=== PATIENT | female | born 1990 | race Caucasian/White ===

== ENCOUNTER 2017-05-08 21:12 | Emergency (ER) | payer SELFPAY ==
[2017-05-08 21:40] LABS: Basophils % (Auto) 0.5 % (0.0-1.8); Eosinophils % (Auto) 1.2 % (0.0-4.3); Mean Corpuscular HGB Conc 30 % (30-34); Platelet Count 327 K/mm3 (140-440); Red Blood Count 5.29 M/mm3 (3.65-5.03); Red Cell Distribution Width 18.8 % (13.2-15.2); White Blood Count 6.5 K/mm3 (4.5-11.0)
[2017-05-08 21:59] LABS: Bilirubin,Urine NEG (Negative); Blood,Urine NEG (Negative); Ketones,Urine TR mg/dL (Negative); Leukocyte Esterase,Urine NEG (Negative); Mucus,Urine FEW /HPF; Nitrite,Urine NEG (Negative); Protein,Urine <15 mg/dL mg/dL (Negative); Urobilinogen,Urine < 2.0 mg/dL (<2.0)
[2017-05-08 22:00] LABS: Anion Gap 20 mmol/L; BUN/Creatinine Ratio 11; Blood Urea Nitrogen 8 mg/dL (7-17); Calcium 9.1 mg/dL (8.4-10.2); Carbon Dioxide 23 mmol/L (22-30); Chloride 95.9 mmol/L (98-107); Glucose 369 mg/dL (65-100); Potassium 3.9 mmol/L (3.6-5.0); Sodium 135 mmol/L (137-145)
[2017-05-08 22:04] LABS: Hematocrit 33.5 % (30.3-42.9); Hemoglobin 10.1 gm/dl (10.1-14.3); Mean Corpuscular Hemoglobin 19 pg (28-32); Mean Corpuscular Volume 63 fl (79-97)
[2017-05-09] MEDS ORDERED: NACL 0.9% 1000 ML 1,000 ML IV ONE (03:19)
[2017-05-09 05:39] LABS: Alanine Aminotransferase 24 units/L (7-56); Albumin 3.6 g/dL (3.9-5); Albumin/Globulin Ratio 1.2 %; Alkaline Phosphatase 113 units/L (35-129); Lipase 24 units/L (13-60); Total Protein 6.5 g/dL (6.3-8.2)
[2017-05-09 05:52] LABS: Bilirubin,Direct < 0.2 mg/dL (0-0.2); Bilirubin,Indirect 0.2 mg/dL
--- NOTE | 2017-05-09 05:55 | Emergency Department Report ---
HPI - General Chief Complaint: Hyperglycemia Time Seen by Provider: 05/09/17 02:40 - HPI HPI: This is a 26-year-old female presents to the emergency department with complaint of elevated blood sugar. She also complains of some upper abdominal discomfort with some nausea and vomiting that occurred earlier. The patient says that she was diagnosed with diabetes around the time of her last , 9 months ago. She was not placed on any diabetes medications and was just given a blood sugar monitor and was attempting to control her sugar with diet. However earlier today she checked her blood sugar and it was about 400 and then she rechecked it this evening and it was almost 600. She has been having trouble with controlling her sugar over the past 3 days. Over this time she also has not had a bowel movement. She denies any fever, dysuria, vaginal discharge or bleeding. She does not have a primary care physician. No recent travel or sick contacts at home. ED Past Medical Hx - Past Medical History Hx Diabetes: Yes - Surgical History Additional Surgical History: C/S - Social History Smoking Status: Never Smoker Substance Use Type: None - Medications Home Medications: Home Medications Medication Instructions Recorded Confirmed Last Taken Type Docusate Sodium [Colace] 100 mg PO BID PRN #20 capsule 05/09/17 Unknown Rx Magnesium Citrate [Citrate of 300 ml PO NOW #1 bottle 05/09/17 Unknown Rx Magnesia] metFORMIN [Glucophage] 500 mg PO BID #60 tablet 05/09/17 Unknown Rx ED Review of Systems ROS: Stated complaint: ELEVATED BLOOD SUGAR - N/V Other details as noted in HPI Comment: All other systems reviewed and negative Constitutional: denies: chills, fever Eyes: denies: eye pain, eye discharge, vision change ENT: denies: ear pain, throat pain Respiratory: denies: cough, shortness of breath, wheezing Cardiovascular: denies: chest pain, palpitations Endocrine: increased thirst, increased urine Gastrointestinal: abdominal pain, nausea, vomiting Genitourinary: frequency. denies: dysuria, discharge Musculoskeletal: denies: back pain, joint swelling, arthralgia Skin: denies: rash, lesions Neurological: denies: headache, weakness, paresthesias Physical Exam - Physical Exam Vital Signs: Vital Signs 05/08/17 05/08/17 05/09/17 21:16 21:20 02:38 Temperature 98.0 F 98.3 F Pulse Rate 86 85 Respiratory 18 18 Rate Blood Pressure 131/79 131/79 114/61 O2 Sat by Pulse 100 100 Oximetry 05/09/17 05/09/17 05/09/17 02:40 02:45 03:00 Temperature 97.6 F Pulse Rate 69 71 Respiratory 15 17 Rate Blood Pressure 114/61 108/66 O2 Sat by Pulse 100 100 Oximetry 05/09/17 05/09/17 03:15 05:40 Temperature Pulse Rate 64 Respiratory 14 16 Rate Blood Pressure 114/61 O2 Sat by Pulse 100 97 Oximetry Physical Exam: GENERAL: The patient is well-developed well-nourished. HENT: Normocephalic. Atraumatic. Patient has moist mucous membranes. EYES: Extraocular motions are intact. Pupils equal reactive to light bilaterally. NECK: Supple. Trachea is midline. CHEST/LUNGS: Clear to auscultation. There is no respiratory distress noted. HEART/CARDIOVASCULAR: Regular. There is no tachycardia. There is no gallop rub or murmur. ABDOMEN: Abdomen is soft. There is tenderness palpation to the upper quadrants of the abdomen. No guarding or rebound tenderness. Patient has normal bowel sounds. There is no abdominal distention. SKIN: Skin is warm and dry.. NEURO: The patient is awake, alert, and oriented. The patient is cooperative. The patient has no focal neurologic deficits. The patient has normal speech. MUSCULOSKELETAL: There is no tenderness or deformity. There is no limitation range of motion. There is no evidence of acute injury. ED Course Vital Signs 05/08/17 05/08/17 05/09/17 21:16 21:20 02:38 Temperature 98.0 F 98.3 F Pulse Rate 86 85 Respiratory 18 18 Rate Blood Pressure 131/79 131/79 114/61 O2 Sat by Pulse 100 100 Oximetry 05/09/17 05/09/17 05/09/17 02:40 02:45 03:00 Temperature 97.6 F Pulse Rate 69 71 Respiratory 15 17 Rate Blood Pressure 114/61 108/66 O2 Sat by Pulse 100 100 Oximetry 05/09/17 05/09/17 03:15 05:40 Temperature Pulse Rate 64 Respiratory 14 16 Rate Blood Pressure 114/61 O2 Sat by Pulse 100 97 Oximetry ED Medical Decision Making - Lab Data Result diagrams: 05/08/17 21:30 05/08/17 21:30 - Radiology Data Radiology results: report reviewed, image reviewed interpreted by me: X-ray of the abdomen shows nonspecific nonobstructive bowel gas. PROCEDURE: US ABDOMEN LIMITED TECHNIQUE: Real-time sonography in multiple planes of the gallbladder fossa and CBD with imaging of the adjacent liver, pancreas, and right kidney was performed with image documentation. CPT 79978 HISTORY: Upper abd pain COMPARISON: No prior studies are available for comparison. FINDINGS: Liver: Liver is fatty. There is no discrete mass.. Gallbladder: There is sludge in the gallbladder. There are no stones. There is no wall thickening or pericholecystic fluid. Intrahepatic bile ducts: Normal . Extrahepatic bile ducts: Bile ducts are normal in caliber.. Pancreas: Normal as visualized with suboptimal depiction of the pancreatic tail. Right kidney: Normal echotexture. No focal renal mass, calculus, or hydronephrosis. Other: No free fluid. IMPRESSION: Fatty liver. There is no cholelithiasis. There is gallbladder sludge. There is no biliary ductal dilatation. Transcribed By: CO Dictated By: RYANNE LINDO MD Electronically Authenticated By: RYANNE LINDO MD Signed Date/Time: 05/09/17 0334 - Medical Decision Making This patient presented with hyperglycemia but does not appear to be in diabetic ketoacidosis as there is no venous acidosis or significant elevated anion gap. Her blood sugar came down to about 280 without any insulin given. She was given a liter of IV fluid. Her abdominal pain was checked out with an x-ray and ultrasound that did not show any acute processes. Labs otherwise regarding the abdomen were unremarkable including normal bilirubin, lipase and LFTs. We discussed dietary and lifestyle changes to make and the patient will be started on metformin. She already checks her blood sugar multiple times per day and will continue to do so and keep a blood sugar log. She will follow up with a primary care physician and return to the ER with any worsening of her symptoms or any acute distress. Critical Care Time: No Critical care attestation.: If time is entered above; I have spent that time in minutes in the direct care of this critically ill patient, excluding procedure time. ED Disposition Clinical Impression: Hyperglycemia Abdominal pain Qualifiers: Abdominal location: upper abdomen, unspecified Qualified Code(s): R10.10 - Upper abdominal pain, unspecified Diabetes mellitus Qualifiers: Diabetes mellitus type: type 2 Diabetes mellitus complication status: with hyperglycemia Diabetes mellitus ad terminal makeup operator insulin use: without ad terminal makeup operator use Qualified Code(s): E11.65 - Type 2 diabetes mellitus with hyperglycemia Disposition: TO HOME OR SELFCARE Is pt being admited?: No Condition: Stable Instructions: Diabetes Mellitus Type 2 in Adults (ED), Abdominal Pain (ED), Diabetic Hyperglycemia (ED) Additional Instructions: Please try and stay away from foods that are high in sugar, carbohydrates and starches to help with your diabetes and/or blood sugar. Keep a blood sugar log. I have started you on a medication for elevated blood sugar called metformin. This medication is to be taken twice daily. Please make sure not to skip any meals while taking this medication or else you might have low blood sugar. Follow up with a primary care physician in the next few days without fail. Return to the emergency Department with any worsening of your symptoms or any acute distress. Prescriptions: Docusate Sodium [Colace] 100 mg PO BID PRN #20 capsule PRN Reason: Constipation Magnesium Citrate [Citrate of Magnesia] 300 ml PO NOW #1 bottle metFORMIN [Glucophage] 500 mg PO BID #60 tablet Referrals: [facility] [Outside] - 3-[address] [facility] [Outside] - 3-5 Days [facility] [Outside] - 3-5 Days [facility] [Outside] - 3-5 Days Time of Disposition: 06:01 Print Language: TAMAZIGHT
--- NOTE | 2017-05-09 06:09 | XRay Report ---
FINAL REPORT PROCEDURE: XR ABDOMEN 2V TECHNIQUE: Abdominal series, including supine and upright AP views. HISTORY: Abd pain COMPARISON: No prior studies are available for comparison. FINDINGS: Bowel gas pattern:There is moderate stool in the colon. There is no fecal impaction. There is no bowel obstruction. There is no bowel wall thickening.. Masses or calcifications:None . Bony structures:No significant abnormality . Pneumoperitoneum:None . Other:No significant findings . IMPRESSION: There is no acute bowel abnormality..
[2017-05-09 07:28] VITALS: BP 107/62
--- NOTE | 2017-05-09 07:37 | Ultrasound Report ---
FINAL REPORT PROCEDURE: US ABDOMEN LIMITED TECHNIQUE: Real-time sonography in multiple planes of the gallbladder fossa and CBD with imaging of the adjacent liver, pancreas, and right kidney was performed with image documentation. CPT 14872 HISTORY: Upper abd pain COMPARISON: No prior studies are available for comparison. FINDINGS: Liver: Liver is fatty. There is no discrete mass.. Gallbladder: There is sludge in the gallbladder. There are no stones. There is no wall thickening or pericholecystic fluid. Intrahepatic bile ducts: Normal . Extrahepatic bile ducts: Bile ducts are normal in caliber.. Pancreas: Normal as visualized with suboptimal depiction of the pancreatic tail. Right kidney: Normal echotexture. No focal renal mass, calculus, or hydronephrosis. Other: No free fluid. IMPRESSION: Fatty liver. There is no cholelithiasis. There is gallbladder sludge. There is no biliary ductal dilatation.
== END 2017-05-09 08:15 | disposition home or self-care (01) ==
LOC: ED 21:12
DX: E11.65 Type 2 diabetes mellitus with hyperglycemia (principal); R11.2 Nausea with vomiting, unspecified; R10.10 Upper abdominal pain, unspecified
CPT/HCPCS: 36415; 74020; 76705; 80048; 80074; 81001; 82805; 82962; 83690; 84703; 85025; 96360; 99285; J7030